=== PATIENT | male | born 1960 | race Caucasian/White ===

== ENCOUNTER 2019-05-10 18:31 | Emergency (ER) | payer OTHER ==
[~2019-05-10] VITALS: Ht 167.6 cm; Wt 65.7 kg
[~2019-05-10 18:31] MED LIST: ACET325T33; ACYC800T5 PO; IBUP-1542 PO; MINE3.5O31 LEFT EYE; PRED20TA PO
[2019-05-10 18:41] VITALS: Ht 167.6 cm; Wt 65.7 kg
[2019-05-10 20:22] VITALS: BP 116/85; PULSE 55; RESP 16
== END 2019-05-10 20:22 | disposition home or self-care (01) ==
LOC: E/R 18:31
DX: G51.0 Bell's palsy (principal); R40.2142 Coma scale, eyes open, spontaneous, at arrival to emergency department; R40.2362 Coma scale, best motor response, obeys commands, at arrival to emergency department; R40.2252 Coma scale, best verbal response, oriented, at arrival to emergency department; F17.210 Nicotine dependence, cigarettes, uncomplicated
CPT/HCPCS: 99283